=== PATIENT | female | born 1990 | race African-American/Black ===

== ENCOUNTER 2022-10-07 04:03 | Day surgery (SDC) | payer OTHER ==
[2022-10-06 08:21] VITALS: BMI 42.5
[2022-10-07] MEDS ORDERED: BUPIVACAINE HCL/PF 0.5% (5MG/ML) 10 ML VIAL ONE (07:30)
[2022-10-07] MEDS ORDERED: LIDOCAINE HCL/PF 1% SDV 5ML VIAL ONE (07:30)
[2022-10-07] MEDS ORDERED: TRIAMCINOLONE ACET 40MG/1ML VIAL ONE ×2 (07:30→11:21)
[2022-10-07] MEDS ORDERED: IOHEXOL 180 MG/1 ML ML IJ ONE (11:49)
[2022-10-07] MEDS ORDERED: BUPIVACAINE HCL/PF 0.5% (5MG/ML) 10 ML VIAL IJ ONE (11:50)
[2022-10-07] MEDS ORDERED: TRIAMCINOLONE ACET 40MG/1ML VIAL IM ONE (11:50)
[2022-10-07] MEDS ORDERED: LIDOCAINE HCL 1%, 10 MG/ML (50 mL VIAL) NR ONE (11:51)
[2022-10-07 12:42] VITALS: BP 116/62; PULSE 71; RESP 18; TEMP 98.7
== END 2022-10-07 12:20 | disposition home or self-care (01) ==
LOC: JASU-SURG 04:03
PROVIDERS: ATTEND Pain Medicine Pain Medicine
PROC: 3E0U3BZ Introduction of Anesthetic Agent into Joints, Percutaneous Approach (ICD-10-PCS; 2022-10-07)
PROC: 3E0U33Z Introduction of Anti-inflammatory into Joints, Percutaneous Approach (ICD-10-PCS; principal; 2022-10-07 10:15)
DX: M53.3 Sacrococcygeal disorders, not elsewhere classified (principal)
CPT/HCPCS: 76000-TC-FY; 81025

== ENCOUNTER 2022-11-11 04:03 | Day surgery (SDC) | payer OTHER ==
[2022-11-08 16:11] VITALS: BMI 42.5
[~2022-11-11 04:03] MED LIST: BUPIVACAINE HCL/PF 0.75% 10 ML VIAL NR ONE; LIDOCAINE 1% P/F 10 MG/ML VIAL SNB ONE
[2022-11-11] MEDS ORDERED: BUPIVACAINE HCL/PF 0.75% 10 ML VIAL ONE (07:24)
[2022-11-11] MEDS ORDERED: LIDOCAINE HCL/PF 1% SDV 5ML VIAL ONE (07:25)
[2022-11-11] MEDS ORDERED: DEXAMETHASONE SOD PHOSPHATE 10 MG/1 ML VIAL ONE (07:26)
[2022-11-11 08:27] VITALS: RESP 18
[2022-11-11] MEDS ORDERED: BUPIVACAINE HCL/PF 0.75% 10 ML VIAL NR ONE (09:27)
[2022-11-11] MEDS ORDERED: LIDOCAINE 1% P/F 10 MG/ML VIAL SNB ONE (09:27)
[2022-11-11] MEDS ORDERED: ACETAMINOPHEN 650 MG/20.3 ML ORAL SOLUTION (CUPS) ONE (09:57)
[2022-11-11] MEDS ORDERED: ACETAMINOPHEN 325 MG TABLET (FP) PO ONE (09:57)
[2022-11-11 12:12] VITALS: BP 110/71; PULSE 70; TEMP 97.9
== END 2022-11-11 11:50 | disposition home or self-care (01) ==
LOC: JASU-SURG 04:03
PROVIDERS: ATTEND Pain Medicine Pain Medicine
PROC: 3E0T33Z Introduction of Anti-inflammatory into Peripheral Nerves and Plexi, Percutaneous Approach (ICD-10-PCS; 2022-11-11)
PROC: 3E0T3BZ Introduction of Anesthetic Agent into Peripheral Nerves and Plexi, Percutaneous Approach (ICD-10-PCS; principal; 2022-11-11 09:00)
DX: M47.896 Other spondylosis, lumbar region (principal)
CPT/HCPCS: 76000-TC-FY; 81025; J1100

== ENCOUNTER 2022-12-20 04:29 | Day surgery (SDC) | payer OTHER ==
[2022-12-14 15:30] VITALS: BMI 42.4
[2022-12-20] MEDS ORDERED: LIDOCAINE HCL/PF 1% SDV 5ML VIAL ONE (10:24)
[2022-12-20] MEDS ORDERED: BUPIVACAINE HCL/PF 0.75% 10 ML VIAL ONE (10:24)
[2022-12-20] MEDS ORDERED: LIDOCAINE HCL 1% PRESERVATIVE FREE - 30ML VIAL IJ ONE ×2 (11:19→11:20)
[2022-12-20] MEDS ORDERED: BUPIVACAINE HCL/PF 0.75% 10 ML VIAL PNB ONE ×2 (11:19→11:20)
[2022-12-20] MEDS ORDERED: ACETAMINOPHEN 650 MG/20.3 ML ORAL SOLUTION (CUPS) PO ONE ×2 (12:00→12:45)
[2022-12-20] MEDS ORDERED: ACETAMINOPHEN 650 MG/20.3 ML ORAL SOLUTION (CUPS) ONE (12:04)
[2022-12-20 12:10] VITALS: RESP 18; TEMP 97.9
[2022-12-20 12:58] VITALS: BP 119/76; PULSE 88
== END 2022-12-20 12:50 | disposition home or self-care (01) ==
LOC: JASU-SURG 04:29
PROVIDERS: ATTEND Pain Medicine Pain Medicine
PROC: 3E0T33Z Introduction of Anti-inflammatory into Peripheral Nerves and Plexi, Percutaneous Approach (ICD-10-PCS; 2022-12-20)
PROC: 3E0T3BZ Introduction of Anesthetic Agent into Peripheral Nerves and Plexi, Percutaneous Approach (ICD-10-PCS; principal; 2022-12-20 11:30)
DX: M47.816 Spondylosis without myelopathy or radiculopathy, lumbar region (principal)
CPT/HCPCS: 76000-TC-FY; 81025